=== PATIENT | male | born 1980 | race Caucasian/White ===

== ENCOUNTER 2021-06-24 09:45 | Emergency (ER) | payer MEDICAID ==
[~2021-06-24] VITALS: Ht 165.1 cm; Wt 77.3 kg
[2021-06-24 09:55] VITALS: BP 172/76
== END 2021-06-24 10:01 | disposition home or self-care (01) ==
LOC: ER 09:47
DX: S11.83XA Puncture wound without foreign body of other specified part of neck, initial encounter (principal); W57.XXXA Bitten or stung by nonvenomous insect and other nonvenomous arthropods, initial encounter; Y93.89 Activity, other specified; Y92.89 Other specified places as the place of occurrence of the external cause; Y99.8 Other external cause status
CPT/HCPCS: 99281